=== PATIENT | male | born 1940 | race Caucasian/White ===

== ENCOUNTER 2024-06-09 01:31 | Observation (INO) | payer MEDICARE ==
--- NOTE | 2024-06-09 01:54 | ED ---
Arrhythmia/Palpitations HPI - General Stated Complaint: Tachycardia Time Seen by Provider: 06/09/24 01:41 Source: patient Mode of arrival: EMS Limitations: no limitations - History of Present Illness Initial Comments: Patient is an 84-year-old man who arrives here as transfer from [facility]. The patient relates that he has been having episodes of rapid heart beat going back a number of months. Tonight he had an episode come on sometime around 7 PM. When it did not resolve by 9 PM his decided to take him to [facility]. The patient was found to be in atrial fibrillation with a rate as high as the 140s and 150s. The patient was started on Cardizem and heparin and he was transferred here. The patient states that he was not having kyle pain. No diaphoresis, dyspnea, nausea or vomiting. MD Complaint: rapid heart beat -: hour(s) Context: occurred during rest Arrhythmia History: atrial fibrillation Associated Symptoms: denies other symptoms Treatments Prior to Arrival: calcium channel santino - Related Data Home Medications Medication Instructions Recorded Confirmed Losartan/Hydrochlorothiazide 1 tab PO DAILY 06/09/24 06/09/24 [Hyzaar 100-25 Tablet] Nebivolol HCl [Bystolic] 10 mg PO DAILY 06/09/24 06/09/24 predniSONE See Taper PO DAILY 06/09/24 06/09/24 Allergies Allergy/AdvReac Type Severity Reaction Status Date / Time Sulfa (Sulfonamide Allergy Swelling Verified 06/09/24 08:07 Antibiotics) Review of Systems ROS Statement: Those systems with pertinent positive or pertinent negative responses have been documented in the HPI. ROS Other: All systems not noted in ROS Statement are negative. Constitutional: Reports: weakness. Denies: fever, chills Respiratory: Denies: cough, dyspnea Cardiovascular: Reports: palpitations. Denies: chest pain, edema, syncope Gastrointestinal: Denies: abdominal pain, nausea, vomiting, diarrhea Genitourinary: Denies: dysuria, hematuria Musculoskeletal: Denies: back pain Skin: Denies: rash Neurological: Denies: headache, weakness, numbness General Exam General appearance: alert, in no apparent distress Head exam: Present: atraumatic, normocephalic Eye exam: Present: normal appearance. Absent: scleral icterus, conjunctival injection ENT exam: Present: normal oropharynx Neck exam: Present: normal inspection Respiratory exam: Present: normal lung sounds bilaterally. Absent: respiratory distress, wheezes, rales, rhonchi, stridor, accessory muscle use Cardiovascular Exam: Present: regular rate, normal rhythm, normal heart sounds. Absent: systolic murmur, diastolic murmur, rubs, gallop GI/Abdominal exam: Present: soft. Absent: distended, tenderness, guarding, re bound, rigid, mass Extremities exam: Present: normal inspection, normal capillary refill. Absent: pedal edema, calf tenderness Back exam: Present: normal inspection. Absent: CVA tenderness (R), CVA tenderness (L) Neurological exam: Present: alert Skin exam: Present: warm, dry, intact, normal color. Absent: rash Course Vital Signs 06/09/24 06/09/24 06/09/24 01:45 02:14 02:20 Temperature 97.8 F Pulse Rate 54 L 53 L Pulse Rate [ 54 L Mechanic Foreman ] Respiratory 16 16 Rate Blood Pressure 153/70 162/90 O2 Sat by Pulse 99 99 Oximetry 06/09/24 06/09/24 06/09/24 02:23 02:58 03:14 Temperature Pulse Rate 54 L 52 L Pulse Rate [ Mechanic Foreman ] Respiratory 18 16 16 Rate Blood Pressure 161/87 O2 Sat by Pulse 97 Oximetry 06/09/24 06/09/24 06/09/24 06:00 08:10 15:22 Temperature Pulse Rate 54 L 51 L 72 Pulse Rate [ Mechanic Foreman ] Respiratory 18 18 16 Rate Blood Pressure 134/81 167/83 190/89 O2 Sat by Pulse 97 98 98 Oximetry EKG Findings - EKG Results: EKG: interpreted by ERMD, sinus rhythm, normal axis, normal QRS (Possible incomplete right bundle branch block), normal ST/T EKG shows: bradycardia (Rate 55 bpm) Medical Decision Making - Medical Decision Making Was pt. sent in by a medical professional or institution (, PA, RADIO PROGRAM CHECKER, urgent care, hospital, or prison...) When possible be specific @ -[Yes, the patient arrives as a transfer from the outside hospital Did you speak to anyone other than the patient for history (EMS, parent, family, police, friend...)? What history was obtained from this source @ -[No] Did you review nursing and triage notes (agree or disagree)? Why? @ -[I reviewed and agree with nursing and triage notes] Were old charts reviewed (outside hosp., previous admission, EMS record, old EKG, old radiological studies, urgent care reports/EKG's, prison records)? Report findings @ -[The transfer charts were reviewed] Differential Diagnosis (chest pain, altered mental status, abdominal pain women, abdominal pain men, vaginal bleeding, weakness, fever, dyspnea, syncope, headache, dizziness, GI bleed, back pain, seizure, CVA, palpatations, mental health, musculoskeletal)? @ -[Differential Chest Pain: Stable Angina, Unstable Angina, STEMI, NSTEMI Aortic Dissection, Pneumothorax, Musculoskeletal, Esophageal Spasm GERD, Cholecystitis, Pancreatitis, Zoster, this is not meant to be an all-inclusive list. EKG interpreted by me (3pts min.). @ -[I interpreted as above] X-rays interpreted by me (1pt min.). @ -[None done] CT interpreted by me (1pt min.). @ -[None done] U/S interpreted by me (1pt. min.). @ -[None done] What testing was considered but not performed or refused? (CT, X-rays, U/S, labs)? Why? @ -[None] What meds were considered but not given or refused? Why? @ -[None] Did you discuss the management of the patient with other professionals (professionals i.e. , PA, RADIO PROGRAM CHECKER, lab, RT, psych nurse, delinquency prevention social worker, apprentice painter neckties, teacher, biosecurity officer, supervisor case loading)? Give summary @ -[Case discussed with admitting physician and treatment recommendations are incorporated Was smoking cessation discussed for >3mins.? @ -[No] Was critical care preformed (if so, how long)? @ -[No] Were there social determinants of health that impacted care today? How? (Homelessness, low income, unemployed, alcoholism, drug addiction, transportation, low edu. Level, literacy, decrease access to med. care, long term, rehab)? @ -[No] Was there de-escalation of care discussed even if they declined (Discuss DNR or withdrawal of care, Hospice)? DNR status @ -[No] What co-morbidities impacted this encounter? (DM, HTN, Smoking, COPD, CAD, Cancer, CVA, ARF, Chemo, Hep., AIDS, mental health diagnosis, sleep apnea, mor bid obesity)? @ -[None] Was patient admitted / discharged? Hospital course, mention meds given and route, prescriptions, significant lab abnormalities, going to OR and other pertinent info. @ -[This patient is an 84-year-old man with what sounds like history of intermittent atrial fibrillation. He had a prolonged episode tonight, went to the other hospital and is transferred here to have cardiology evaluation. The patient does have minimally elevated troponin but no acute IN symptoms now. Undiagnosed new problem with uncertain prognosis? @ -[No] Drug Therapy requiring intensive monitoring for toxicity (Heparin, Nitro, Insulin, Cardizem)? @ -[No] Were any procedures done? @ -[No] Diagnosis/symptom? @ -[Atrial fibrillation with rapid ventricular rate Elevated troponin I Acute, or Chronic, or Acute on Chronic? @ -[Acute Uncomplicated (without systemic symptoms) or Complicated (systemic symptoms)? @ -[Complicated by elevated troponin Side effects of treatment? @ -[No] Exacerbation, Progression, or Severe Exacerbation? @ -[No] Poses a threat to life or bodily function? How? (Chest pain, USA, IN, pneumonia, PE, COPD, DKA, ARF, appy, cholecystitis, CVA, Diverticulitis, Homicidal, Suicidal, threat to staff... and all critical care pts) @ -[Yes - Lab Data Result diagrams: 06/09/24 01:54 06/09/24 01:54 Lab Results 06/09/24 06/09/24 06/09/24 Range/Units 01:54 01:54 01:54 WBC 6.6 (3.8-10.6) k/uL RBC 4.79 (4.30-5.90) m/uL Hgb 14.7 (13.0-17.5) gm/dL Hct 46.1 (39.0-53.0) % MCV 96.3 (80.0-100.0) fL MCH 30.6 (25.0-35.0) pg MCHC 31.8 (31.0-37.0) g/dL RDW 13.2 (11.5-15.5) % Plt Count 250 (150-450) k/uL MPV 7.9 Neutrophils % 61 % Lymphocytes % 25 % Monocytes % 7 % Eosinophils % 4 % Basophils % 1 % Neutrophils # 4.0 (1.3-7.7) k/uL Lymphocytes # 1.6 (1.0-4.8) k/uL Monocytes # 0.4 (0-1.0) k/uL Eosinophils # 0.3 (0-0.7) k/uL Basophils # 0.1 (0-0.2) k/uL Sodium 141 (137-145) mmol/L Potassium 3.7 (3.5-5.1) mmol/L Chloride 105 (98-107) mmol/L Carbon Dioxide 28 (22-30) mmol/L Anion Gap 8 mmol/L BUN 37 H (9-20) mg/dL Creatinine 1.21 (0.66-1.25) mg/dL Est GFR (CKD-EPI)AfAm 63 (>60 ml/min/1.73 sqM) Est GFR (CKD-EPI)NonAf 55 (>60 ml/min/1.73 sqM) Glucose 118 H (74-99) mg/dL Calcium 9.3 (8.4-10.2) mg/dL Magnesium 2.2 (1.6-2.3) mg/dL Total Bilirubin 0.4 (0.2-1.3) mg/dL AST 26 (17-59) U/L ALT 20 (4-49) U/L Alkaline Phosphatase 78 (38-126) U/L Troponin I (0.000-0.034) ng/mL Total Protein 6.4 (6.3-8.2) g/dL Albumin 4.0 (3.5-5.0) g/dL TSH 3.950 (0.465-4.680) mIU/L 06/09/24 Range/Units 01:55 WBC (3.8-10.6) k/uL RBC (4.30-5.90) m/uL Hgb (13.0-17.5) gm/dL Hct (39.0-53.0) % MCV (80.0-100.0) fL MCH (25.0-35.0) pg MCHC (31.0-37.0) g/dL RDW (11.5-15.5) % Plt Count (150-450) k/uL MPV Neutrophils % % Lymphocytes % % Monocytes % % Eosinophils % % Basophils % % Neutrophils # (1.3-7.7) k/uL Lymphocytes # (1.0-4.8) k/uL Monocytes # (0-1.0) k/uL Eosinophils # (0-0.7) k/uL Basophils # (0-0.2) k/uL Sodium (137-145) mmol/L Potassium (3.5-5.1) mmol/L Chloride (98-107) mmol/L Carbon Dioxide (22-30) mmol/L Anion Gap mmol/L BUN (9-20) mg/dL Creatinine (0.66-1.25) mg/dL Est GFR (CKD-EPI)AfAm (>60 ml/min/1.73 sqM) Est GFR (CKD-EPI)NonAf (>60 ml/min/1.73 sqM) Glucose (74-99) mg/dL Calcium (8.4-10.2) mg/dL Magnesium (1.6-2.3) mg/dL Total Bilirubin (0.2-1.3) mg/dL AST (17-59) U/L ALT (4-49) U/L Alkaline Phosphatase (38-126) U/L Troponin I 0.121 H* (0.000-0.034) ng/mL Total Protein (6.3-8.2) g/dL Albumin (3.5-5.0) g/dL TSH (0.465-4.680) mIU/L Disposition Clinical Impression: Atrial fibrillation, Elevated troponin I level Disposition: ADMITTED IP TO THIS HOSP Condition: Fair Is patient prescribed a controlled substance at d/c from ED?: No
[2024-06-09] MEDS ORDERED: NITROGLYCERIN SL TABS 0.4 MG TAB SUBLINGUAL PRN (01:56)
[2024-06-09 02:03] LABS: Basophils # (A) 0.1 k/uL (0-0.2); Basophils % (A) 1 %; Eosinophils # (A) 0.3 k/uL (0-0.7); Eosinophils % (A) 4 %; HCT 46.1 % (39.0-53.0); HGB 14.7 gm/dL (13.0-17.5); Lymphocytes # (A) 1.6 k/uL (1.0-4.8); Lymphocytes % (A) 25 %; MCH 30.6 pg (25.0-35.0); MCHC 31.8 g/dL (31.0-37.0); MCV 96.3 fL (80.0-100.0); Mean Platelet Volume 7.9; Monocytes # (A) 0.4 k/uL (0-1.0); Monocytes % (A) 7 %; Neutrophils % (A) 61 %; Platelet Count 250 k/uL (150-450); RBC 4.79 m/uL (4.30-5.90); RDW 13.2 % (11.5-15.5); WBC 6.6 k/uL (3.8-10.6)
[2024-06-09 02:15] VITALS: TEMP 97.8
[2024-06-09 02:25] LABS: ALT 20 U/L (4-49); AST 26 U/L (17-59); African American GFR (CKD) 63 (>60 ml/min/1.73 sqM); Alkaline Phosphatase 78 U/L (38-126); Anion Gap 8 mmol/L; Blood Urea Nitrogen 37 mg/dL (9-20); Calcium 9.3 mg/dL (8.4-10.2); Carbon Dioxide 28 mmol/L (22-30); Chloride 105 mmol/L (98-107); Glucose 118 mg/dL (74-99); Magnesium 2.2 mg/dL (1.6-2.3); Non-African American GFR(CKD) 55 (>60 ml/min/1.73 sqM); Potassium 3.7 mmol/L (3.5-5.1); Sodium 141 mmol/L (137-145); Total Bilirubin 0.4 mg/dL (0.2-1.3); Total Protein 6.4 g/dL (6.3-8.2)
[2024-06-09] MEDS: DILTIAZEM ORAL 30 MG TAB PO SCH (02:56)
[2024-06-09] MEDS: LOSARTAN-HCTZ 50-12.5 MG 1 EACH TAB PO SCH ×2 (10:42→10:45)
[2024-06-09] MEDS: METOPROLOL SUCCINATE (ER) 25 MG TAB.ER.24H PO SCH (10:45)
[2024-06-09] MEDS: FLECAINIDE 50 MG TAB PO SCH (10:45)
[2024-06-09] MEDS: predniSONE 1 MG TAB PO SCH (10:46)
--- NOTE | 2024-06-09 13:56 | P.HPIM ---
History of Present Illness H&P Date: 06/09/24 Patient is an 84-year-old male with a past medical history of paroxysmal atrial fibrillation with rapid ventricular rate and hypertension was transferred to the emergency department from [facility] for atrial fibrillation with rapid ventricular rate. He states that around 2020 he was diagnosed with atrial fibrillation and sees Dr. Cueto outpatient. He is not on anticoagulation at this time. He states that last night after dinner he felt his heart start racing, it lasted a few hours instead of a few minutes like normal, and then he went to [facility]. While he was at [facility] he was found to be in atrial fibrillation with rapid ventricular rate, he was given IV Cardizem and then transferred here. He endorses palpitations at the time but have since reso lved. He denies chest pain, shortness of breath, weakness, fever, chills, nausea, vomiting. EKG shows junctional bradycardia. WBC 6.6, hemoglobin 14.7, platelets 250, sodium 141, potassium 3.7, BUN 37, creatinine 1.21, GFR 55, troponin 0.121, 0.126, 0.129. Afebrile, hypertensive, bradycardic, 99% on room air. ED documentation reviewed. Review of systems: Pertinent positives and negatives as discussed in HPI, a complete review of systems was performed and all other systems are negative. Social history: Tobacco: Never smoker Alcohol: 2 glasses of wine 4 days a week Recreational drugs: Denies Occupation: Chiropractor Physical examination: Vital signs are stable. General: No acute distress. AOx3. HEENT: Head exam is unremarkable. EOMI bilaterally. ACs patent. Nares patent. Lungs: Bilateral breath sounds present; no rhonchi, wheezes, or rales. Heart: Rate and rhythm are regular. S1-S2 present. No murmur/rub/gallops. Abdomen: Soft, nontender, nondistended. Bowel sounds present. Extremities: No edema present. Symmetric movement. Psych: Normal affect and mood. Cooperative. Assessment/Plan: Paroxysmal atrial fibrillation Cariology consulted Hold Bystolic Continue Hyzaar Sinus bradycardia Hold Bystolic Polymyalgia rheumatica Continue 2 mg prednisone daily DVT prophylaxis: mechanical Chronic conditions: HTN, polymyalgia rheumatica The patient is admitted with an anticipated less than 2 midnight stay for evaluation of a-fib with RVR. Discussed with: Patient Anticipated discharge place: Home Past Medical History Past Medical History: Hypertension Additional Past Medical History / Comment(s): cataracts, newly diagnosed afib w/RVR 06/08/24@ [facility] History of Any Multi-Drug Resistant Organisms: None Reported Past Surgical History: Joint Replacement Additional Past Surgical History / Comment(s): cataract surgery, bilateral knee replacements Past Psychological History: No Psychological Hx Reported Smoking Status: Never smoker Past Alcohol Use History: Daily Past Drug Use History: None Reported Medications and Allergies Home Medications Medication Instructions Recorded Confirmed Type Losartan/Hydrochlorothiazide 1 tab PO DAILY 06/09/24 06/09/24 History [Hyzaar 100-25 Tablet] Nebivolol HCl [Bystolic] 10 mg PO DAILY 06/09/24 06/09/24 History predniSONE See Taper PO DAILY 06/09/24 06/09/24 History Allergies Allergy/AdvReac Type Severity Reaction Status Date / Time Sulfa (Sulfonamide Allergy Swelling Verified 06/09/24 08:07 Antibiotics) Physical Exam Vitals: Vital Signs Temp Pulse Pulse Resp BP Pulse Ox 06/09/24 03:14 52 L 16 06/09/24 02:58 54 L 16 161/87 97 06/09/24 02:23 18 06/09/24 02:20 54 L 06/09/24 02:14 53 L 16 162/90 99 06/09/24 01:45 97.8 F 54 L 16 153/70 99 Intake and Output 06/08/24 06/08/24 06/09/24 14:59 22:59 06:59 Other: Weight 81.193 kg Results CBC & Chem 7: 06/09/24 01:54 06/09/24 01:54 Labs: Abnormal Lab Results - Last 24 Hours (Table) 06/09/24 06/09/24 Range/Units 01:54 01:55 BUN 37 H (9-20) mg/dL Glucose 118 H (74-99) mg/dL Troponin I 0.121 H* (0.000-0.034) ng/mL
[2024-06-09 15:25] VITALS: BP 190/89; PULSE 72; RESP 16
--- NOTE | 2024-06-09 16:18 | P.CRDCN ---
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 Patient follows in the office with Dr. Cueto. We have been asked to see the patient in consultation for new onset A-fib. Patient was examined at the bedside in the emergency room. Patient had initially gone to [facility] and then transferred here. Patient states that last night he felt a rapid heartbeat which went on for about 2 hours. He states this has happened before but usually resolves within a few minutes. At [place] he received Cardizem and IV heparin. He also stated he had some shortness of breath and fatigue. Patient denied dizziness, lightheadedness, chest pain, fevers, chills, or headaches. Patient denies being on blood thinners. DIAGNOSTICS: -EKG from [place] showed A-fib with RVR -Repeat EKG showed junctional bradycardia -Chest x-ray not done -Laboratory data: CBC unremarkable. BUN 37. Glucose 118. Troponins: 0.121, 0.126, 0.129 -Current home cardiac medications include Bystolic 10 mg daily, Hyzaar 100-25 mg daily -Most recent echocardiogram in September 2023 showed normal EF, mild AR -Recently had an event monitor which showed sinus mechanism evidently with atrial tachycardia with the longest episode lasting about 36 seconds and also multiple episodes of nonsustained ventricular tachycardia. REVIEW OF SYSTEMS: As stated above in HPI. PHYSICAL EXAM: VITAL SIGNS: Reviewed. GENERAL: Well-developed in no acute distress. HEENT: Head is normocephalic. Pupils are equal, round. Sclerae anicteric. Mucous membranes of the mouth are moist. Neck supple. No JVD or thyromegaly LUNGS: Respirations even and unlabored. Lungs clear to auscultation bilaterally. HEART: Regular rate and rhythm. S1 and S2 heard. ABDOMEN: Soft. Nontender to palpation. EXTREMITIES: Normal range of motion. No clubbing or cyanosis. Peripheral pulses intact. No notable lower extremity edema. NEUROLOGIC: Awake and alert. Oriented x 3. 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 Cueto regarding arrhythmia and addition of anticoagulation Monitor JEROME, daily weights, electrolytes and renal function Further recommendations to follow based upon clinical course Thank you kindly for this consultation. Past Medical History Past Medical History: Hypertension Additional Past Medical History / Comment(s): cataracts, newly diagnosed afib w/RVR 06/08/24@ [facility] History of Any Multi-Drug Resistant Organisms: None Reported Past Surgical History: Joint Replacement Additional Past Surgical History / Comment(s): cataract surgery, bilateral knee replacements Past Psychological History: No Psychological Hx Reported Smoking Status: Never smoker Past Alcohol Use History: Daily Past Drug Use History: None Reported Medications and Allergies Home Medications Medication Instructions Recorded Confirmed Type Losartan/Hydrochlorothiazide 1 tab PO DAILY 06/09/24 06/09/24 History [Hyzaar 100-25 Tablet] Nebivolol HCl [Bystolic] 10 mg PO DAILY 06/09/24 06/09/24 History predniSONE See Taper PO DAILY 06/09/24 06/09/24 History Allergies Allergy/AdvReac Type Severity Reaction Status Date / Time Sulfa (Sulfonamide Allergy Swelling Verified 06/09/24 08:07 Antibiotics) Physical Exam Vitals: Vital Signs Temp Pulse Pulse Resp BP Pulse Ox 06/09/24 15:22 72 16 190/89 98 06/09/24 08:10 51 L 18 167/83 98 06/09/24 06:00 54 L 18 134/81 97 06/09/24 03:14 52 L 16 06/09/24 02:58 54 L 16 161/87 97 06/09/24 02:23 18 06/09/24 02:20 54 L 06/09/24 02:14 53 L 16 162/90 99 06/09/24 01:45 97.8 F 54 L 16 153/70 99 Intake and Output 06/09/24 06/09/24 06/09/24 06:59 14:59 22:59 Other: Weight 81.193 kg Results 06/09/24 01:54 06/09/24 01:54 Cardiac Enzymes 06/09/24 06/09/24 06/09/24 Range/Units 01:54 01:55 05:51 AST 26 (17-59) U/L Troponin I 0.121 H* 0.126 H* (0.000-0.034) ng/mL 06/09/24 Range/Units 07:40 AST (17-59) U/L Troponin I 0.129 H* (0.000-0.034) ng/mL CBC 06/09/24 Range/Units 01:54 WBC 6.6 (3.8-10.6) k/uL RBC 4.79 (4.30-5.90) m/uL Hgb 14.7 (13.0-17.5) gm/dL Hct 46.1 (39.0-53.0) % Plt Count 250 (150-450) k/uL Comprehensive Metabolic Panel 06/09/24 Range/Units 01:54 Sodium 141 (137-145) mmol/L Potassium 3.7 (3.5-5.1) mmol/L Chloride 105 (98-107) mmol/L Carbon Dioxide 28 (22-30) mmol/L BUN 37 H (9-20) mg/dL Creatinine 1.21 (0.66-1.25) mg/dL Glucose 118 H (74-99) mg/dL Calcium 9.3 (8.4-10.2) mg/dL AST 26 (17-59) U/L ALT 20 (4-49) U/L Alkaline Phosphatase 78 (38-126) U/L Total Protein 6.4 (6.3-8.2) g/dL Albumin 4.0 (3.5-5.0) g/dL Current Medications Generic Name Dose Route Start Last Admin Trade Name Freq PRN Reason Stop Dose Admin Aspirin 325 mg 06/10/24 09:00 Aspirin 325 Mg Tab PO DAILY TALAT Flecainide Acetate 50 mg 06/09/24 11:00 06/09/24 10:45 Flecainide 50 Mg Tab PO 50 mg Q12HR TALAT Administration HCTZ/Losartan Potassium 2 each 06/09/24 11:00 06/09/24 10:45 Losartan-Hctz 50-12.5 Mg 1 Each Tab PO 2 each DAILY TALAT Administration Metoprolol Succinate 25 mg 06/09/24 10:00 06/09/24 10:47 Metoprolol Succinate (Er) 25 Mg Tab.Er.24h PO Not Given DAILY [facility] Nitroglycerin 0.4 mg 06/09/24 01:56 Nitroglycerin Sl Tabs 0.4 Mg Tab SUBLINGUAL Q5M PRN Chest Pain Prednisone 2 mg 06/09/24 11:00 06/09/24 10:46 Prednisone 1 Mg Tab PO 2 mg DAILY TALAT Administration Rivaroxaban 15 mg 06/09/24 17:30 Rivaroxaban 15 Mg Tab PO W/SUPPER [facility] Protocol Intake and Output 06/09/24 06/09/24 06/09/24 06:59 14:59 22:59 Other: Weight 81.193 kg 06/09/24 01:54 06/09/24 01:54
[2024-06-09] MEDS ORDERED: RIVAROXABAN 15 MG TAB PO SCH (17:30)
[2024-06-10] MEDS ORDERED: ASPIRIN 325 MG TAB PO SCH (09:00)
== END 2024-06-09 15:25 | disposition home or self-care (01) ==
LOC: EC 01:31 → 3SCARD 01:56
PROVIDERS: ADMIT Hospitalist; ATTEND Hospitalist
DX: I48.0 Paroxysmal atrial fibrillation (principal); I47.20 Ventricular tachycardia, unspecified; I49.3 Ventricular premature depolarization; I47.10 Supraventricular tachycardia, unspecified; I10 Essential (primary) hypertension; R00.1 Bradycardia, unspecified; E78.5 Hyperlipidemia, unspecified; M06.9 Rheumatoid arthritis, unspecified; M35.3 Polymyalgia rheumatica; Z79.52 Long term (current) use of systemic steroids; Z79.899 Other long term (current) drug therapy; Z88.2 Allergy status to sulfonamides
CPT/HCPCS: 36415; 80053; 83735; 84443; 84484; 85025; 93005; 99285